=== PATIENT | female | born 1985 | race Caucasian/White ===

== ENCOUNTER 2016-11-05 21:28 | Emergency (ER) | payer OTHER ==
--- NOTE | ~2016-11-05 | CR63 ---
[facility] A Service of [facility] & [facility] RADIOLOGY TEXT RESULTS PATIENT: REHANA GUIDO LOCATION: [facility] : [birth year] UNIT #: [id number] AGE: [address]: Yomaira Chatman APRN SEX: F ORDER DR: [id number] [facility] [address] [place], [place] [address] [id number] E MR#: [id number] #: [id number] NAME: REHANA GUIDO : 1985 SEX: F STUDY DATE/TIME: 11/05/2016 20:01 UNIT: [facility] ROOM: STUDY DESCRIPTION: CR Chest 2 View Attending Physician: Er Doctor Generic Ordering Physician: Yomaira Chatman A.P.R.N. Primary Care Physician: Primary Care Physician No MEDICAL IMAGING REPORT This report is preliminary unless electronic signature is present EXAM Chest PA and lateral, 11/05/2016 HISTORY Cough, shortness of breath and fever for 3 days. Smoking history. FINDINGS PA and lateral examination of the chest upright shows a good expansion of the parenchyma with a normal distribution of the pulmonary vascularity. There is no indication of congestion, effusion, infiltrate, tumor, or nodular density. The pleural reflections and diaphragmatic contours are normal. The cardiac silhouette and mediastinal anatomy is within normal limits. IMPRESSION Normal chest. Dictated by... Bienvenido Abbasi M.D. THIS IS AN ELECTRONICALLY VERIFIED REPORT Bienvenido Abbasi M.D. at 11/06/2016 4:20 PM KRT/ana TD: 11/06/2016 02:02 JOB #: [id number] MEDICAL IMAGING REPORT COPY
[2016-11-05 20:32] LABS: INFLUENZA A NEG (NEG); INFLUENZA B NEG (NEG)
[~2016-11-05 21:28] MED LIST: ALBUTEROL17 G1 IH; AMOXIL500 M1 PO; BACTRIM DS TABL1 TAB; BACTRIM DS TABL1 TAB PO; CIPRO PO; DOXYCYCLINE PO; IBUPROFEN800 MG PO; KEFLEX PO; ORTHO TRI-7 DAYSX 3; PYRIDIUM PO; ROBITUSSIN A-C-S1 ML PO; VICODIN 5/500 T1 TAB PO
== END 2016-11-05 21:31 | disposition home or self-care (01) ==
LOC: CFTX 21:28
PROVIDERS: Nurse Practitioner
DX: J06.9 Acute upper respiratory infection, unspecified (principal); J20.9 Acute bronchitis, unspecified; F17.210 Nicotine dependence, cigarettes, uncomplicated
CPT/HCPCS: 71020; 87651; 87804; 87880; 94640; 99284